=== PATIENT | female | born 1940 | race Caucasian/White ===

== ENCOUNTER 2021-07-17 15:21 | Emergency (ER) | payer OTHER ==
[~2021-07-17] VITALS: Ht 160 cm; Wt 60.8 kg
[2021-07-17] MEDS ORDERED: ZESTRIL10 MG PO (15:38)
[2021-07-17] MEDS ORDERED: LIPITOR40 MG PO (15:38)
[2021-07-17] MEDS ORDERED: METFORMIN HCL500 M3 PO (15:39)
[2021-07-17] MEDS ORDERED: XELJANZ5 MG PO (15:40)
[2021-07-17] MEDS ORDERED: RAYOS5 MG PO (15:40)
[2021-07-17] MEDS ORDERED: LEFLUNOMIDE20 MG PO (15:40)
[2021-07-17] MEDS ORDERED: TRULICITY1.5 MG/0.5 SUBQ (15:41)
[2021-07-17] MEDS ORDERED: ASA81BEC PO (15:42)
[2021-07-17] MEDS ORDERED: PRESERVISION A1 EAC2 PO (15:42)
[2021-07-17] MEDS ORDERED: LEVEMIR100 UNIT/1 SUBQ (15:42)
[2021-07-17] MEDS ORDERED: TRADJENTA5 MG PO (15:43)
[2021-07-17] MEDS ORDERED: BONIVA150 MG PO (15:43)
[2021-07-17] MEDS ORDERED: GABAPENTIN100 MG PO (15:43)
[2021-07-17] MEDS ORDERED: CYCLOBENZAPRINE5 MG PO (15:44)
[2021-07-17] MEDS ORDERED: TOPROL XL25 MG PO (15:44)
[2021-07-17 15:55] LABS: URINE BILIRUBIN 1+ (Negative); URINE BLOOD NEGATIVE (Negative); URINE CLARITY CLEAR; URINE COLOR YELLOW; URINE GLUCOSE-RANDOM NEGATIVE (Negative); URINE KETONES 3+ (Negative); URINE LEUKOCYTES-REFLEX NEGATIVE (Negative); URINE NITRITE-REFLEX NEGATIVE (Negative); URINE PROTEIN 1+ (Negative); URINE UROBILINOGEN 0.2 E.U./dl (0.2-1.0)
[2021-07-17 15:58] LABS: ACETEST (KETONE CONFIRMATORY) Large (Negative); ICTOTEST (BILI CONFIRMATORY) Negative (Negative)
[2021-07-17] MEDS ORDERED: ZOFRAN ODT4 MG DISSOLVE (16:11)
[2021-07-17] MEDS ORDERED: PROTONIX40 M4 PO (16:11)
[2021-07-17 16:14] LABS: ABSOLUTE BASOPHILS 0.1 thou/uL (0.0-0.2); ABSOLUTE EOSINOPHILS 0.1 thou/uL (0.0-0.7); ABSOLUTE LYMPHOCYTES 0.7 thou/uL (0.8-5.3); ABSOLUTE MONOCYTES 0.9 thou/uL (0.0-1.2); ABSOLUTE NEUTROPHILS 7.6 thou/uL (1.6-8.1); BASOPHILS 0.6 %; EOSINOPHILS 1.5 %; HEMATOCRIT 33.3 % (37.0-47.0); HEMOGLOBIN 10.8 gm/dL (12.0-15.0); LYMPHOCYTES 7.6 %; MCH 29.2 pg (26.0-34.0); MCHC 32.4 g/dL (28.0-37.0); MCV 90.3 fL (80.0-100.0); MONOCYTES 9.8 %; MPV 8.9 fl. (7.2-11.1); NUCLEATED RBCS 0 /100WBC; PLATELET COUNT* 322 thou/uL (150-400); POLYS 80.5 %; RBC 3.69 mil/uL (4.20-5.00); RDW-CV 15.4 % (10.5-14.5); WBC 9.5 thou/uL (4.0-11.0)
[2021-07-17 16:15] LABS: CALCIUM 9.4 mg/dL (8.5-10.1); CREATININE 0.9 mg/dL (0.6-1.3)
[2021-07-17 16:24] LABS: ALBUMIN 2.7 g/dL (3.4-5.0); TOTAL BILIRUBIN 0.7 mg/dL (<0.1-1.0); TOTAL PROTEIN 6.8 g/dL (6.4-8.2)
[2021-07-17 16:40] VITALS: BP 150/66
== END 2021-07-17 16:48 | disposition home or self-care (01) ==
LOC: M.ERS 15:21
PROVIDERS: Family Medicine
DX: R11.2 Nausea with vomiting, unspecified (principal); R53.83 Other fatigue; R19.7 Diarrhea, unspecified; R41.0 Disorientation, unspecified; Z96.651 Presence of right artificial knee joint; Z79.899 Other long term (current) drug therapy; Z79.4 Long term (current) use of insulin; Z79.82 Long term (current) use of aspirin; Z88.1 Allergy status to other antibiotic agents